=== PATIENT | male | born 1930 | race Caucasian/White ===

== ENCOUNTER 2016-06-24 09:51 | Emergency (ER) | payer MEDICARE ==
[2016-06-24 11:47] LABS: URINE BILIRUBIN NEGATIVE (NEGATIVE); URINE BLOOD NEGATIVE (NEGATIVE); URINE GLUCOSE (UA) NEGATIVE (NEGATIVE); URINE LEUKOCYTE ESTERASE NEGATIVE (NEGATIVE); URINE NITRITE NEGATIVE (NEGATIVE); URINE PROTEIN NEGATIVE (NEGATIVE); URINE UROBILINOGEN NORMAL (0-1 mg/dl)
[2016-06-24 12:00] LABS: URINE APPEARANCE CLEAR; URINE COLOR YELLOW
== END 2016-06-24 12:50 | disposition home or self-care (01) ==
LOC: ED 09:51
DX: K59.00 Constipation, unspecified (principal); R33.9 Retention of urine, unspecified; Z89.612 Acquired absence of left leg above knee; Z89.202 Acquired absence of left upper limb, unspecified level